=== PATIENT | male | born 1960 | race Asian ===

== ENCOUNTER 2023-03-25 21:21 | Emergency (ER) | payer BC, SELFPAY ==
[2023-03-25 21:32] VITALS: BMI 26.5
--- NOTE | 2023-03-25 21:32 | ECG_ITS ---
Test Reason : SYNCOPE Blood Pressure : / mmHG Vent. Rate : 061 BPM Atrial Rate : 061 BPM P-R Int : 162 ms QRS Dur : 092 ms QT Int : 400 ms P-R-T Axes : -15 042 022 degrees QTc Int : 402 ms Normal sinus rhythm Normal ECG No previous ECGs available Referred By: Generic ED Physician Electronically Signed By:JOHANNE SOLARES MD
[2023-03-25 21:39] VITALS: BP 126/74; PULSE 61; RESP 20; TEMP 36.6; O2SAT 99
--- NOTE | 2023-03-25 21:42 | MHC.EDTECH ---
Patient came by ambulance change into hospital attire bus monitor placed vitals taken and EKG done.
--- NOTE | 2023-03-25 22:09 | MHC.EDTECH ---
Labs were drawn on pt and sent to lab
[2023-03-25 22:14] LABS: MANUAL DIFF FLAG NO
[2023-03-25 22:15] LABS: Basophils Percent Auto 0.4 % (0-2); Eosinophils Absolute Auto 0.2 X10*3/uL (0.0-0.4); Eosinophils Percent Auto 2.3 % (0-4); Hematocrit 39.9 % (42.0-52.0); Hemoglobin 13.7 g/dl (14.0-18.0); Imm Gran Abs Auto 0.02 X10*3/uL (0.00-0.03); Imm Gran Pct Auto 0.2 % (0.0-0.4); Lymphocytes Absolute Auto 1.9 X10*3/uL (1.2-4.9); Lymphocytes Percent Auto 18.1 % (20-40); Mean Corpuscular HGB Conc 34.3 g/dl (31.0-36.0); Mean Corpuscular Hemoglobin 32.4 pg (27.0-33.0); Mean Corpuscular Volume 94.3 fL (80.0-98.0); Mean Platelet Volume 8.8 fL (9.4-12.4); Monocytes Absolute Auto 0.5 X10*3/uL (0.1-1.2); Neutrophils Absolute Auto 7.6 x10*3/uL (2.0-8.3); Platelet Count 216 X10*3/uL (160-400); Red Blood Count 4.23 X10*6/uL (4.60-5.80); Red Cell Distribution Width 12.2 % (11.0-16.0); White Blood Count 10.3 X10*3/uL (4.8-10.8)
[2023-03-25 22:29] LABS: Alanine Aminotransferase 31 U/L (0-40); Albumin Level 3.9 g/dL (3.5-5.0); Alkaline Phosphatase 67 U/L (39-117); Anion Gap 12 (12-20); Aspartate Amino Transferase 30 U/L (5-37); Bilirubin Total 0.4 mg/dL (0.0-1.0); Blood Urea Nitrogen 19 mg/dL (9-16); Carbon Dioxide 26 mmol/L (22-29); Chloride 106 mmol/L (96-108); Creatinine Clr Calc Pharmacy 89.3; Estimated Glomerular Filt Rate > 60; Glucose Random 78 mg/dL (60-115); Potassium 4.1 mmol/L (3.3-5.1); Sodium 140 mmol/L (135-145); Total Protein 6.4 g/dL (6.5-8.0)
[2023-03-25 22:36] LABS: Troponin-I High Sensitivity 3.2 ng/L (<3.5-35.0)
[2023-03-25 23:44] VITALS: BP 127/73; PULSE 55; RESP 21; O2SAT 98
--- NOTE | 2023-03-26 00:07 | ED_ITS ---
HPI - Syncope General Chief Complaint: Syncope Stated Complaint: syncope, unconscious for 30 sec, per ems Time Seen by Provider: 03/26/23 00:01 Source: patient Mode of arrival: EMS Limitations: no limitations History of Present Illness HPI narrative: patient was working outside all day on the house and he got likely dehydrated. tonight he got bilateral hamstring spasms and he went to walk it off and he passed out for 45 seconds. complaint: loss of consciousness -: second(s) Related Data Allergies Allergy/AdvReac Type Severity Reaction Status Date / Time No Known Allergies Allergy Verified 03/25/23 21:40 Review of Systems Review of Systems: Yes all other systems are reviewed and are negative Neurologic: Denies Sensory deficit (Neuro) [facility] Social History Social History Advance Directives: No Advance Directives Information Provided: No Physical Exam Vital Signs: Vital Signs: Last Vital Signs Temp 97.6 F 03/26/23 02:17 Pulse 95 03/26/23 02:17 Resp 20 03/26/23 02:17 BP 139/88 03/26/23 02:17 Pulse Ox 98 03/26/23 02:17 O2 Del Method Room Air 03/26/23 02:17 BMI result Body Mass Index 26.5 Const: General: healthy appearing Nutritional Appearance: average body habitus Orientation/consciousness: oriented to person and patient oriented x3 Limitations: no limitations HEENT: Head: Yes normal to inspection Ears: external ears normal General nose exam: Normal external nose present Mouth: Normal oral and palatal mucosa present and oropharynx normal Throat: Yes posterior oropharynx normal Eyes: General: appearance normal, both eyes and all related structures Neck: Other: supple Neck: Yes normal visual inspection Chest: Chest palpation & inspection: normal inspection of the chest Resp: Auscultation: clear to auscultation bilaterally Cardio: Jugular venous distension: no JVD Rate: regular rate Rhythm: regular rhythm Heart sounds: S1 normal heart sound present and S2 normal hear t sound present GI: Inspection: Yes normal to inspection Palpation (GI): Soft to palpation, nontender and No hepatosplenomegaly present Auscultation: normal bowel sounds : General: Yes no CVA tenderness Back/Spine/Pelvis: Back: no CVA tenderness Skin: General skin exam: no rashes or lesions noted Neuro: General: oriented to person and patient oriented x3 Cranial nerves: Yes CN's II-XII intact bilaterally Motor exam (neuro): 5/5 motor strength present throughout Sensory Exam: No Sensory deficit (Neuro) Extrem: General: Yes normal to inspection Psych: Appearance: grossly normal Course Reevaluation(s) Reevaluation #1: serial EKGs normal will dc home with vasovagal syncope Time: 03:10 Medications Administered Discontinued Medications Generic Name Dose Route Start Last Admin Trade Name Freq PRN Reason Stop Dose Admin Sodium Chloride 1,000 mls @ 999 mls/hr 03/26/23 00:15 03/26/23 00:38 Ns IVCONT 03/26/23 02:15 999 mls/hr .Q1H1M NOEL Administration Medical Decision Making Differential Diagnosis Differential Diagnoses: The differential diagnosis associated with the presentation includes (cardiac ischemia, cardiac arrythmia, vasovagal syncope) Admission/Observation Consideration of admission/observation: Escalation of care including admissi on/observation considered (62 yo male presents with syncope was immediately considered for admission) Lab Data MDM Lab Attestation statement: I reviewed the patient's lab results. (normal cell count, serial troponins negative) 03/25/23 22:07 03/25/23 22:07 Labs: Lab Results 03/25/23 03/25/23 03/25/23 Range/Units 22:07 22:07 22:07 WBC 10.3 (4.8-10.8) X10*3/uL RBC 4.23 L (4.60-5.80) X10*6/uL Hgb 13.7 L (14.0-18.0) g/dl Hct 39.9 L (42.0-52.0) % MCV 94.3 (80.0-98.0) fL MCH 32.4 (27.0-33.0) pg MCHC 34.3 (31.0-36.0) g/dl RDW 12.2 (11.0-16.0) % Plt Count 216 (160-400) X10*3/uL MPV 8.8 L (9.4-12.4) fL Immature Gran % (Auto) 0.2 (0.0-0.4) % Neut % (Auto) 74.0 H (45-73) % Lymph % (Auto) 18.1 L (20-40) % Beaver % (Auto) 5.0 (2-11) % Eos % (Auto) 2.3 (0-4) % Baso % (Auto) 0.4 (0-2) % Lymph # (Auto) 1.9 (1.2-4.9) X10*3/uL Beaver # (Auto) 0.5 (0.1-1.2) X10*3/uL Eos # (Auto) 0.2 (0.0-0.4) X10*3/uL Baso # (Auto) 0.0 (0.0-0.2) X10*3/uL Abs Immat Gran (auto) 0.02 (0.00-0.03) X10*3/uL Absolute Neuts (auto) 7.6 (2.0-8.3) x10*3/uL Absolute Nucleated RBC 0.000 (0.0-0.012) X10*3/uL Nucleated RBC % (auto) 0.0 (0.0-0.2) /100WBC Sodium 140 (135-145) mmol/L Potassium 4.1 (3.3-5.1) mmol/L Chloride 106 (96-108) mmol/L Carbon Dioxide 26 (22-29) mmol/L Anion Gap 12 (12-20) BUN 19 H (9-16) mg/dL Creatinine 0.89 (0.5-1.4) mg/dL Estim Creat Clear Calc 89.3 Estimated GFR > 60 Random Glucose 78 (60-115) mg/dL Calcium 9.0 (8.4-10.2) mg/dL Magnesium 2.3 (1.6-2.6) mg/dL Total Bilirubin 0.4 (0.0-1.0) mg/dL AST 30 (5-37) U/L ALT 31 (0-40) U/L Alkaline Phosphatase 67 (39-117) U/L Troponin I High Sens 3.2 (<3.5-35.0) ng/L Total Protein 6.4 L (6.5-8.0) g/dL Albumin 3.9 (3.5-5.0) g/dL 03/26/23 Range/Units 02:25 WBC (4.8-10.8) X10*3/uL RBC (4.60-5.80) X10*6/uL Hgb (14.0-18.0) g/dl Hct (42.0-52.0) % MCV (80.0-98.0) fL MCH (27.0-33.0) pg MCHC (31.0-36.0) g/dl RDW (11.0-16.0) % Plt Count (160-400) X10*3/uL MPV (9.4-12.4) fL Immature Gran % (Auto) (0.0-0.4) % Neut % (Auto) (45-73) % Lymph % (Auto) (20-40) % Beaver % (Auto) (2-11) % Eos % (Auto) (0-4) % Baso % (Auto) (0-2) % Lymph # (Auto) (1.2-4.9) X10*3/uL Beaver # (Auto) (0.1-1.2) X10*3/uL Eos # (Auto) (0.0-0.4) X10*3/uL Baso # (Auto) (0.0-0.2) X10*3/uL Abs Immat Gran (auto) (0.00-0.03) X10*3/uL Absolute Neuts (auto) (2.0-8.3) x10*3/uL Absolute Nucleated RBC (0.0-0.012) X10*3/uL Nucleated RBC % (auto) (0.0-0.2) /100WBC Sodium (135-145) mmol/L Potassium (3.3-5.1) mmol/L Chloride (96-108) mmol/L Carbon Dioxide (22-29) mmol/L Anion Gap (12-20) BUN (9-16) mg/dL Creatinine (0.5-1.4) mg/dL Estim Creat Clear Calc Estimated GFR Random Glucose (60-115) mg/dL Calcium (8.4-10.2) mg/dL Magnesium (1.6-2.6) mg/dL Total Bilirubin (0.0-1.0) mg/dL AST (5-37) U/L ALT (0-40) U/L Alkaline Phosphatase (39-117) U/L Troponin I High Sens < 2.7 (<3.5-35.0) ng/L Total Protein (6.5-8.0) g/dL Albumin (3.5-5.0) g/dL Independent Interpretation I performed an independent interpretation of an: EKG (sinus 60, no st or twave changes) Tests considered The following testing was considered but not selected: I considered a head CT but patient is non focal and his symptom did not sound neurologic Discharge Plan Discharge Clinical Impression: Vasovagal syncope Patient Disposition: Home, Self-Care Instructions: Syncope (ED) Referrals: Physician,Nonstaff [Primary Care Provider] - 5 days
[2023-03-26] MEDS: 0.9 % Sodium Chloride 1,000 ML 999 ML IVCONT ×2 (00:35→00:38)
[2023-03-26 00:43] LABS: Magnesium 2.3 mg/dL (1.6-2.6)
[2023-03-26 02:17] VITALS: BP 139/88; PULSE 95; RESP 20; TEMP 36.4; O2SAT 98
[2023-03-26 02:49] LABS: Troponin-I High Sensitivity < 2.7 ng/L (<3.5-35.0)
== END 2023-03-26 04:30 | disposition home or self-care (01) ==
PROVIDERS: Emergency Provider Emergency Medicine
DX: R55 Syncope and collapse (principal); M62.838 Other muscle spasm; E86.0 Dehydration; Z79.899 Other long term (current) drug therapy
CPT/HCPCS: 36415; 80053; 83735; 84484; 85025; 93005; 96360; 96361; 99285

== ENCOUNTER → 2023-03-25 21:32 | Outpatient (BNV) | payer SELFPAY | PROVIDERS: Emergency Provider Emergency Medicine; Visit Provider Internal Medicine Cardiovascular Disease | DX: R55 Syncope and collapse (principal) | CPT/HCPCS: 93010 ==